=== PATIENT | male | born 1965 | race Caucasian/White ===

== ENCOUNTER 2016-10-28 20:44 | Inpatient (IN) | payer BC ==
[~2016-10-28] VITALS: Ht 182.9 cm; Wt 111.4 kg
[2016-10-28 22:39] LABS: HEMOGLOBIN 13.4 gm/dl (14.0-17.5); RED BLOOD COUNT 4.41 M/UL (4.20-5.50)
[2016-10-28 22:58] LABS: BUN/CREATININE RATIO 13 (0-10)
[2016-10-29 05:37] LABS: HEMOGLOBIN 12.7 gm/dl (14.0-17.5); RED BLOOD COUNT 4.24 M/UL (4.20-5.50); WHITE BLOOD COUNT 10.8 K/UL (4.5-11.0)
[2016-10-29 05:56] LABS: BUN/CREATININE RATIO 14 (0-10)
[2016-10-30 05:37] LABS: HEMOGLOBIN 13.1 gm/dl (14.0-17.5); RED BLOOD COUNT 4.38 M/UL (4.20-5.50); WHITE BLOOD COUNT 8.8 K/UL (4.5-11.0)
[2016-10-30 05:54] LABS: BUN/CREATININE RATIO 13 (0-10)
[2016-10-30] MEDS ORDERED: FLAGYL500 MG PO (15:21)
[2016-10-30] MEDS ORDERED: CIPRO500 MG PO (15:21)
[2017-01-22] MEDS ORDERED: NEURONTIN 400400 MG PO (07:12)
[2017-01-22] MEDS ORDERED: CELEBREX200 MG PO (07:13)
[2017-01-25] MEDS ORDERED: NORCO 7.5-3251 EACH PO (15:07)
== END 2016-10-30 15:40 | disposition home or self-care (01) | DRG 392 ==
LOC: ER1 20:44 → M/S 10-29 01:15 → ZEROF 10-29 01:15 → M/S 10-29 03:44
PROVIDERS: Physician Assistant Medical; Radiology Radiation Oncology; ADMIT Internal Medicine
DX: K57.20 Diverticulitis of large intestine with perforation and abscess without bleeding (principal); D64.9 Anemia, unspecified; K59.00 Constipation, unspecified; R73.9 Hyperglycemia, unspecified; R59.9 Enlarged lymph nodes, unspecified; M19.90 Unspecified osteoarthritis, unspecified site; E66.9 Obesity, unspecified; Z68.33 Body mass index [BMI] 33.0-33.9, adult; F17.200 Nicotine dependence, unspecified, uncomplicated; Z79.1 Long term (current) use of non-steroidal anti-inflammatories (NSAID); Z79.899 Other long term (current) drug therapy; Z98.890 Other specified postprocedural states
CPT/HCPCS: 36415; 74020; 80048; 80053; 81001; 82150; 83690; 83735; 85025; 85027; 87040; 96365; 96375; 99284; J1885; J1956; J2405; J7030; J7050; Q9962

== ENCOUNTER → 2020-05-17 | Outpatient (CLI) | payer BC ==
[~2020-05-17] MED LIST: BUPROPION XL150 MG PO; BUSPAR 5MG TABLE5 MG PO; CELEBREX200 MG PO; CIPRO500 MG PO; ECOTRIN81 MG PO; FLAGYL500 MG PO; GLUCOPHAGE 500500 MG PO; IBUPROFEN800 MG PO; KEFLEX500 MG PO; LIPITOR40 MG PO; LOVENOX40 MG/0.4 SQ; NEURONTIN 400400 MG PO; NORCO 7.5-3251 EACH PO; PERCOCET 5-3251 EACH PO; PROTONIX40 MG PO; PROZAC40 MG PO; VISTARIL 25 MG25 MG PO; VITAMIN C500 M1 PO
== END ==
LOC: KOH-I 05-12 14:42
DX: M79.671 Pain in right foot (principal); M19.071 Primary osteoarthritis, right ankle and foot; Z98.890 Other specified postprocedural states
CPT/HCPCS: 73630

== ENCOUNTER 2020-11-29 17:58 | Observation (INO) | payer BC ==
[~2020-11-29] VITALS: Ht 182.9 cm; Wt 111.1 kg
[~2020-11-29 17:58] MED LIST changes: -BUPROPION XL150 MG PO; -ECOTRIN81 MG PO; -GLUCOPHAGE 500500 MG PO; -LIPITOR40 MG PO; -PROTONIX40 MG PO; -VISTARIL 25 MG25 MG PO
[2020-11-29 18:39] LABS: HEMOGLOBIN 15.5 gm/dl (14.0-17.5); RED BLOOD COUNT 4.93 M/UL (4.20-5.50); WHITE BLOOD COUNT 10.1 K/UL (4.5-11.0)
[2020-11-30] MEDS ORDERED: GLUCOPHAGE 500500 MG PO (09:03)
[2020-11-30] MEDS ORDERED: BUPROPION XL150 MG PO (09:05)
[2020-11-30] MEDS ORDERED: VISTARIL 25 MG25 MG PO (09:05)
[2020-11-30] MEDS ORDERED: LIPITOR40 MG PO (16:39)
[2020-11-30] MEDS ORDERED: ECOTRIN81 MG PO (16:39)
[2020-11-30] MEDS ORDERED: PROTONIX40 MG PO (16:39)
== END 2020-11-30 17:44 | disposition home or self-care (01) ==
LOC: ER1 17:58 → CDU 21:07 → MED SURG 4 11-30 07:17
PROVIDERS: Emergency Medicine; ADMIT Internal Medicine
DX: R07.9 Chest pain, unspecified (principal); E11.9 Type 2 diabetes mellitus without complications; G47.33 Obstructive sleep apnea (adult) (pediatric); F17.210 Nicotine dependence, cigarettes, uncomplicated; Z79.4 Long term (current) use of insulin; Z20.822 Contact with and (suspected) exposure to COVID-19; J43.9 Emphysema, unspecified; I07.1 Rheumatic tricuspid insufficiency; I10 Essential (primary) hypertension; E78.5 Hyperlipidemia, unspecified
CPT/HCPCS: ECHO; 78452; 80053; 80061; 82550; 82553; 82962; 83036; 83690; 83874; 84484; 85025; 85379; 93005; 93017; 93306; 99285; A9502; G0378; Q9967; U0002

== ENCOUNTER → 2021-04-24 | Outpatient (CLI) | payer BC ==
[~2021-04-24] MED LIST changes: +BUPROPION XL150 MG PO; +ECOTRIN81 MG PO; +GLUCOPHAGE 500500 MG PO; +LIPITOR40 MG PO; +PROTONIX40 MG PO; +VISTARIL 25 MG25 MG PO
== END ==
LOC: KOH-I 10:18
DX: M54.2 Cervicalgia (principal); M47.22 Other spondylosis with radiculopathy, cervical region
CPT/HCPCS: 72040

== ENCOUNTER → 2021-05-03 | Outpatient (CLI) | payer BC | LOC: CT 07:37 | DX: M54.2 Cervicalgia (principal); M47.812 Spondylosis without myelopathy or radiculopathy, cervical region; M48.02 Spinal stenosis, cervical region | CPT/HCPCS: 36415; 82565; Q9967 ==

== ENCOUNTER → 2021-06-19 | Outpatient (CLI) | payer BC | LOC: MRI 06-15 11:00 | DX: M50.10 Cervical disc disorder with radiculopathy, unspecified cervical region (principal) | CPT/HCPCS: 36415; 72156; 82565; A9577 ==